=== PATIENT | female | born 1965 | race Caucasian/White ===

== ENCOUNTER 2018-10-24 15:12 | Emergency (ER) | payer OTHER ==
[2018-10-24 15:23] VITALS: BP 110/61
[2018-10-24] MEDS ORDERED: predniSONE TAB* 20 MG PO ONE (15:47)
--- NOTE | 2018-10-24 15:48 | UC ---
Skin Complaint HPI - HPI Summary HPI Summary: 53 yo female s/p bee sting to left index finger 2 days ago swelling dorsum pg - History of Current Complaint Chief Complaint: UCSkin Time Seen by Provider: 10/24/18 15:38 Stated Complaint: BEE STING Hx Obtained From: Patient Hx Last Menstrual Period: 10/17/18 Onset/Duration: Sudden Onset Skin Exposure Onset/Duration: Days Ago Onset Severity: Moderate Current Severity: Mild Pain Intensity: 2 Pain Scale Used: 0-10 Numeric Location: Discrete Character: Swelling, Pruritus, Redness, Painful Aggravating Factor(s): Touch Alleviating Factor(s): Cold, Other - elevation Associated Signs & Symptoms: Positive: Tenderness. Negative: Nausea, Vomiting, Numbness, Thirst, Diaphoresis, Weakness, Pallor, Shivering, Difficulty Breathing , Fever, Chills, Cough, Wheezing, Chest Pain, Hoarseness, Throat Tightening, Rash, Abdominal Pain, Lightheadedness, Syncope, Drainage, Bruising, Red Streaks , Joint Swelling Related History: Insect Bite/Sting - Allergy/Home Medications Allergies/Adverse Reactions: Allergies Allergy/AdvReac Type Severity Reaction Status Date / Time naproxen Allergy Rash And Verified 10/24/18 15:24 Itching PMH/Surg Hx/FS Hx/Imm Hx Previously Healthy: Yes - Surgical History Surgical History: Yes Surgery Procedure, Year, and Place: SKIN CANCER - Family History Known Family History: Positive: Hypertension - Social History Alcohol Use: Weekly Alcohol Amount: 1 [employer] WEEKLY Substance Use Type: Excessive Caffeine Substance Use Comment - Amount & Last Used: GETS HEADACHES WITHOUT COFFEE Smoking Status (MU): Never Smoked Tobacco Review of Systems All Other Systems Reviewed And Are Negative: Yes Constitutional: Positive: Negative Skin: Positive: Negative Eyes: Positive: Negative ENT: Positive: Negative Respiratory: Positive: Negative Cardiovascular: Positive: Negative Gastrointestinal: Positive: Negative Genitourinary: Positive: Negative Motor: Positive: Negative Musculoskeletal: Positive: Edema Neurological: Positive: Negative Psychological: Positive: Negative Physical Exam Triage Information Reviewed: Yes Appearance: Well-Appearing, No Pain Distress, Well-Nourished Vital Signs: Initial Vital Signs Temp 98.9 F 10/24/18 15:18 Pulse 67 10/24/18 15:18 Resp 12 10/24/18 15:18 BP 110/61 10/24/18 15:18 Pulse Ox 98 10/24/18 15:18 Vital Signs Reviewed: Yes Eyes: Positive: Conjunctiva Clear ENT: Positive: Hearing grossly normal. Negative: Nasal congestion, Nasal drainage, Tonsillar swelling, Tonsillar exudate, Uvula midline Neck: Positive: Supple, Nontender, No Lymphadenopathy Respiratory: Positive: Lungs clear, Normal breath sounds, No respiratory distress, No accessory muscle use Cardiovascular: Positive: RRR, No Murmur Musculoskeletal: Positive: Edema @ - see image Neurological: Positive: Alert Psychological Exam: Normal Skin Exam: Other - see image Images Hands: 1 - sting site 2 - dorsal hand edema Course/Dx - Diagnoses Provider Diagnosis: Local reaction to bee sting Discharge - Sign-Out/Discharge Documenting (check all that apply): Patient Departure All imaging exams completed and their final reports reviewed: No Studies - Discharge Plan Condition: Stable Disposition: HOME Prescriptions: predniSONE [Deltasone 20 MG TAB] 40 mg PO DAILY #8 tab Patient Education Materials: Insect Bite or Sting (ED) Referrals: Tyrese Rowan MD [Primary Care Provider] - If Needed Additional Instructions: rest elevate ice oral benadryl OK to take for itching if needed - Billing Disposition and Condition Condition: STABLE Disposition: Home
== END 2018-10-24 15:56 | disposition home or self-care (01) ==
LOC: UCEAST 15:12
DX: T63.441A Toxic effect of venom of bees, accidental (unintentional), initial encounter (principal); Y92.9 Unspecified place or not applicable
CPT/HCPCS: 99212; G0463; J7512